=== PATIENT | female | born 1985 | race Caucasian/White ===

== ENCOUNTER 2018-04-06 19:11 | Outpatient (CLI) | payer OTHER ==
[2018-04-06] MEDS ORDERED: PRENATAL TABLE1 EAC1 PO (20:02)
== END 2018-04-07 13:12 | disposition home or self-care (01) ==
LOC: OBS/DEL 19:11
DX: L05.91 Pilonidal cyst without abscess (principal); O26.893 Other specified pregnancy related conditions, third trimester; Z34.03 Encounter for supervision of normal first pregnancy, third trimester

== ENCOUNTER 2018-05-25 15:15 | Inpatient (IN) | payer OTHER ==
[~2018-05-25] VITALS: Ht 160 cm; Wt 67.1 kg
[~2018-05-25 15:15] MED LIST: PRENATAL TABLE1 EAC1 PO
== END 2018-06-07 14:36 | DRG 775 ==
LOC: LDR 06-05 05:02 → OB/GYN 06-05 05:02 → LDR 06-11 15:15
PROC: 10E0XZZ Delivery of Products of Conception, External Approach (ICD-10-PCS; principal; 2018-06-05)
PROC: 3E0P7VZ Introduction of Hormone into Female Reproductive, Via Natural or Artificial Opening (ICD-10-PCS; 2018-06-05)
PROC: 3E033VJ Introduction of Other Hormone into Peripheral Vein, Percutaneous Approach (ICD-10-PCS; 2018-06-05)
PROC: 4A033R1 Measurement of Arterial Saturation, Peripheral, Percutaneous Approach (ICD-10-PCS; 2018-06-05)
PROC: 4A1HXCZ Monitoring of Products of Conception, Cardiac Rate, External Approach (ICD-10-PCS; 2018-06-05)
DX: O80 Encounter for full-term uncomplicated delivery (principal); Z3A.39 39 weeks gestation of pregnancy; Z37.0 Single live birth